=== PATIENT | female | born 1950 | race Caucasian/White ===

== ENCOUNTER 2024-02-23 11:15 | Outpatient (RCR) | payer MEDICARE, OTHER, SELFPAY ==
--- NOTE | 2024-02-23 11:21 | PC.NURSE ---
1100: Pt. to [facility] via w/c accompanied by . Assisted pt. to bed. Able to transfer self. Procedure explained to pt., denies questions. Pt. to supine position on bed. Using sterile technique, pt. straight cath'd for mod. amount clear yellow urine. Pt. tolerated without c/o. Marilynn care provided. Given privacy to dress. 1112: Pt. d/c'd via w/c to home with .
[2024-02-23 11:27] LABS: Bilirubin Urine NEGATIVE (NEGATIVE); Blood Urine NEGATIVE (NEGATIVE); Clarity Urine CLEAR (CLEAR); Color Urine LT. YELLOW (YELLOW); Glucose Urine UA NEGATIVE (NEGATIVE); Ketones Urine NEGATIVE (NEGATIVE); Leukocyte Esterase Urine NEGATIVE (NEGATIVE); Nitrite Urine NEGATIVE (NEGATIVE); Protein Urine NEGATIVE (NEG/TRACE); Specific Gravity Urine 1.015 (1.005-1.025); Urobilinogen Urine 0.2 EU/dL (0.2-1.0)
[2024-02-23 11:30] LABS: Urine Microscopic Indicated NO
== END 2024-02-25 23:59 | disposition home or self-care (01) ==
LOC: INF 11:15
PROVIDERS: Visit Provider Personal Emergency Response Attendant
DX: N30.00 Acute cystitis without hematuria (principal)
CPT/HCPCS: 51701; 81003